=== PATIENT | male | born 1980 | race Two or more races ===

== ENCOUNTER 2016-08-10 23:42 | Emergency (ER) | payer SELFPAY ==
[~2016-08-10] VITALS: Ht 177.8 cm; Wt 74.8 kg
--- NOTE | 2016-08-10 23:48 | NUR ---
PT [facility] 77 AND [employer], PT FOUND ON FRONT YARD WITH BIZARRE BEHAVIOR. FOUND WITH BAG OF EMPTY PILL BOTTLES. PT AOX4 AT THIS TIME. RR EVEN AND UNLABORED. NO SOB NOTED. NAD AT THIS TIME. PT NOT DIAPHORETIC. PT GOWNED AND PLACED ON MONITOR WAITING FOR MD COATES.
--- NOTE | 2016-08-10 23:49 | NUR ---
PT DENIES HI/SI
--- NOTE | 2016-08-10 23:50 | NUR ---
DR. LUCAS AT BEDSIDE FOR EVAL.
[2016-08-11 00:05] LABS: BASOPHILS % (AUTO) 0.2 % (0.0-2.0); EOSINOPHILS # (AUTO) 0.1 /CMM (0.0-0.7); EOSINOPHILS % (AUTO) 0.4 % (0.0-6.0); HEMATOCRIT 50 % (39-51); HEMOGLOBIN 16.4 g/dL (13.5-17.5); LYMPHOCYTES # (AUTO) 1.2 /CMM (0.8-4.8); LYMPHOCYTES % (AUTO) 7.7 % (20.0-44.0); MEAN CORPUSCULAR HEMOGLOBIN 29 PG (26.0-33.0); MEAN CORPUSCULAR HGB CONC 33 g/dl (31.0-36.0); MEAN CORPUSCULAR VOLUME 88 fL (80-96); MONOCYTES # (AUTO) 0.5 /CMM (0.1-1.30); MONOCYTES % (AUTO) 3.6 % (2.0-12.0); NEUTROPHILS # (AUTO) 13.4 /CMM (1.8-8.9); NEUTROPHILS % (AUTO) 88.1 % (43.0-81.0); PLATELET COUNT (AUTO) 270 /CMM (150-450); RDW COEFFICIENT OF VARIATION 14.5 (11.5-15.0); WHITE BLOOD COUNT (AUTO) 15.2 K/uL (4.3-11.0)
[2016-08-11 00:24] LABS: ACETAMINOPHEN 0 ug/ml (10-30); ALANINE AMINOTRANSFERASE 100 U/L (12-78); ALBUMIN 4.6 g/dL (3.4-5.0); ALCOHOL, BLOOD < 3 mg/dL (0-0); ALKALINE PHOSPHATASE 95 U/L (46-116); ASPARTATE AMINOTRANSFERASE 30 U/L (15-37); BILIRUBIN,DIRECT 0.1 mg/dL (0.0-0.2); BILIRUBIN,TOTAL 0.3 mg/dL (0.2-1.0); CALCIUM, SERUM 9.1 mg/dL (8.5-10.1); CARBON DIOXIDE 17 mmol/L (21-32); CHLORIDE 107 mmol/L (98-107); CREATININE 1.3 mg/dL (0.6-1.3); GFR 62 mL/min (>60); GLUCOSE 135 mg/dL (74-106); SALICYLATE 1.9 mg/dL (2.8-20.0); SODIUM SERUM 141 mmol/L (136-145); TOTAL PROTEIN, SERUM 7.9 g/dL (6.4-8.2); UREA NITROGEN, BLOOD 16 mg/dL (7-18)
[2016-08-11] MEDS ORDERED: IV NS 0.9% 1,000 ML ONE (00:31)
[2016-08-11] MEDS ORDERED: IV SET PRIMARY PUMP SET 1 EA INFUS.SET MC ONE (00:31)
--- NOTE | 2016-08-11 00:37 | NUR ---
VERBAL ORDERS PER DR. LUCAS TO GIVE PT IV 1L NS BOLUS ONE TIME. PT MEDICATED.
[2016-08-11] MEDS ORDERED: IV NS 0.9% 1,000 ML BAG IV ONE (01:00)
--- NOTE | 2016-08-11 01:18 | NUR ---
URINE COLLECTED. CALLED LAB FOR SALON COORDINATOR.
[2016-08-11 01:39] LABS: CANNABINOID, URINE NEGATIVE (NEGATIVE); PHENCYCLIDINE SCREEN,URINE NEGATIVE (NEGATIVE)
[2016-08-11] MEDS ORDERED: IBUPROFEN 600 MG TABLET PO ONE ×2 (02:00)
--- NOTE | 2016-08-11 02:09 | NUR ---
IV removed. Catheter intact and site benign. Pressure and 4x4 applied to site. No bleeding noted. Patient discharged to home in stable condition. Written and verbal after care instructions given. Patient verbalizes understanding of instruction. Patient is ambulatory with steady gait. No further complaints.
[2016-08-11 02:12] VITALS: BP 135/105
== END 2016-08-11 02:12 | disposition home or self-care (01) ==
LOC: ER 23:44
DX: E86.0 Dehydration (principal); E72.8 Other specified disorders of amino-acid metabolism; F41.9 Anxiety disorder, unspecified
CPT/HCPCS: 36415; 80048-TC; 80076-TC; 80305; 85025-TC; A4606; G0480; G6039-TC; J7030; Z7610